=== PATIENT | female | born 1955 | race Caucasian/White ===

== ENCOUNTER 2017-05-13 15:50 | Emergency (ER) | payer OTHER, MEDICAID ==
[~2017-05-13] VITALS: Ht 152.4 cm; Wt 120.0 kg
[~2017-05-13 15:50] MED LIST: ALBU1AER INH; DUONI NEB; GABA100C4 PO; GLUC1000 PO; GLUCTES27 XX; KCL20 PO; LISI-363 PO; MOBI15TA PO; OMPR20CCR PO; PERC5TAB12 PO; PRED50 PO; PRED50TA PO; SYMB80AE INH; TORS20TA PO; Z.0.OXYGEN INH
[2017-05-13 15:59] VITALS: BP 166/75; PULSE 76; RESP 16; TEMP 98.6; O2SAT 96
[2017-05-13] MEDS ORDERED: RESP: ALBUTEROL 2.5 MG/3 ML NEB (SCH) NEB ONE (16:15)
[2017-05-13 16:23] VITALS: O2SAT 96
[2017-05-13] MEDS ORDERED: LISI-515 PO (16:51)
[2017-05-13] MEDS ORDERED: VITA2000 PO (16:51)
[2017-05-13] MEDS ORDERED: SYMB160A INH (16:51)
[2017-05-13] MEDS ORDERED: COQ-30CA2 PO (16:51)
[2017-05-13] MEDS ORDERED: ALPH1CAP2 PO (16:51)
[2017-05-13] MEDS ORDERED: MAGN250T11 PO (16:51)
[2017-05-13] MEDS ORDERED: STOO100T PO (16:51)
[2017-05-13] MEDS ORDERED: CALC500T8 PO (16:51)
[2017-05-13] MEDS ORDERED: ATOR10TA15 PO (16:51)
[2017-05-13] MEDS ORDERED: OXYC1TAB36 PO (16:51)
[2017-05-13] MEDS ORDERED: FENT100D T-DERMAL (16:51)
[2017-05-13] MEDS ORDERED: DIFL50TA PO (16:52)
[2017-05-13] MEDS ORDERED: ALBUAER3 INH (16:52)
[2017-05-13] MEDS ORDERED: IPRASOL INH (16:52)
[2017-05-13] MEDS ORDERED: METF1000 PO (16:52)
--- NOTE | 2017-05-13 17:08 | PD ---
HPI Chief Complaint: Fall Time Seen by Provider: 16:05 Travel History International Travel<30 days: No Contact w/Intl Traveler<30days: No Traveled to known affect area: No History of Present Illness HPI This is a 61-year-old female presented to the ER after mechanical fall at home yesterday. Patient slipped and fell on her left side. She complaining of left hip pain as well as knee pain. Pain is 6 out of 10 comes and goes worse when she moves her extremities. There is no motor or sensory loss, no back pain no loss of consciousness or vomiting or head trauma. PFSH Past Medical History Hx Anticoagulant Therapy: No Arthritis: Yes Asthma: Yes Autoimmune Disease: No Blood Disorders: No Anxiety: No Depression: No Heart Rhythm Problems: No Cancer: No Cardiovascular Problems: Yes (CHF) High Cholesterol: No Chemotherapy: No Chest Pain: No Congestive Heart Failure: Yes COPD: Yes Cerebrovascular Accident: No Diabetes: Yes Patient Takes Glucophage: Yes Diminished Hearing: No Endocrine: No Gastrointestinal Disorders: Yes GERD: Yes Glaucoma: No Genitourinary: No Hepatitis: No Hiatal Hernia: No Hypertension: Yes Immune Disorder: No Implanted Vascular Access Dvce: No Kidney Stones: No Musculoskeletal: Yes Neurologic: No Psychiatric: No Reproductive: No Respiratory: Yes (COPD) Immunizations Current: No Myocardial Infarction: No Radiation Therapy: No Renal Failure: No Sleep Apnea: Yes (O2 QHS) Thyroid Disease: No Ulcer: No Tetanus Vaccination: < 5 Years Influenza Vaccination: No ?: Not Menopausal: Yes Dilation and Curettage (D&C): Yes Past Surgical History Abdominal Surgery: Yes (UMBILLICAL HERNIA REPAIR) AICD: No Appendectomy: No Cardiac Surgery: No Cholecystectomy: No Ear Surgery: No Endocrine Surgery: No Eye Surgery: No Genitourinary Surgery: No Gynecologic Surgery: No Hysterectomy: No Insulin Pump: No Joint Replacement: No Neurologic Surgery: No Oral Surgery: Yes (TONSILECTOMY ) Pacemaker: No Thoracic Surgery: No Tonsillectomy: Yes Other Surgery: Yes (NOSE) Social History Alcohol Use: No Tobacco Use: No Substance Use: No Allergies-Medications (Allergen,Severity, Reaction): Coded Allergies: strawberry (Unverified Allergy, Severe, HIVES, 05/13/17) hives on abdomen levofloxacin (Unverified Allergy, Intermediate, Rash, 05/13/17) DEVELOPED WHELPS AT SITE OF INFUSION , STOPPED AND MD NOTIFIED. ADDED TO ALLERGY LIST AT THIS TIME. naproxen (Unverified Adverse Reaction, Severe, Anaphylaxis, 05/13/17) Uncoded Allergies: artificial sweetners (Adverse Reaction, Severe, gets sores in mouth, ) Reported Meds & Prescriptions Reported Meds & Active Scripts Active Reported Diflucan (Fluconazole) 50 Mg Tab 50 Mg PO DAILY Metformin (Metformin HCl) 1,000 Mg Tab 1,000 Mg PO BIDPC Proair Hfa 8.5 GM Inh (Albuterol Sulfate) 90 Mcg/Act Aer 2 Puff INH Q4-6H PRN 108 mcg/actuation Duoneb (Ipratropium-Albuterol Neb) 0.5-2.5 Mg/3 Ml Neb 1 Nebule INH Q6HR NEB Alpha Lipoic Acid 100 Mg Cap 100 Mg PO DIRECTED Stool Softener (Docusate Sodium) 100 Mg Tab 1 Tab PO HS Calcium Oyster Shell (Calcium Carbonate) 1,250 Mg Tab 1,250 Mg PO BID 1,250 mg calcium carbonate (500 mg elemental calcium) Atorvastatin (Atorvastatin Calcium) 10 Mg Tab 10 Mg PO HS Coq-10 (Coenzyme Q10 (Ubidecarenone)) 30 Mg Cap 1 Cap PO DAILY Fentanyl Patch 72 HR (Fentanyl) 100 Mcg/Hr Patch 100 Mcg T-DERMAL Q72H Remove old patch when new one placed. Oxycodone-Acetaminophen 10-325 mg Tab 1 Tab PO DIRECTED PRN Vitamin D3 (Cholecalciferol) 2,000 Unit Cap 2,000 Units PO DAILY Magnesium Oxide 250 Mg Tab 250 Mg PO DAILY Lisinopril 20 Mg Tab 20 Mg PO BID Symbicort Inh (Budesonide/Formoterol Fumarate) 160-4.5 Mcg/Act Aero 2 Puff INH Q12HR Review of Systems Except as stated in HPI: all other systems reviewed are Neg Physical Exam Narrative GENERAL: Alert oriented 3 no acute distress. SKIN: Focused skin assessment warm/dry. HEAD: Atraumatic. Normocephalic. EYES: Pupils equal and round. No scleral icterus. No injection or drainage. ENT: No nasal bleeding or discharge. Mucous membranes pink and moist. NECK: Trachea midline. No JVD. CARDIOVASCULAR: Regular rate and rhythm. No murmur appreciated. RESPIRATORY: No accessory muscle use. Clear to auscultation. Breath sounds equal bilaterally. GASTROINTESTINAL: Abdomen soft, non-tender, nondistended. Hepatic and splenic margins not palpable. MUSCULOSKELETAL: Mild tenderness of left hip, full range of motion even with tenderness. Mild knee tenderness but no swelling or erythema not warm to touch. No obvious deformities. No clubbing. No cyanosis. No edema. NEUROLOGICAL: Awake and alert. No obvious cranial nerve deficits. Motor grossly within normal limits. Normal speech. PSYCHIATRIC: Appropriate mood and affect; insight and judgment normal. Data Data Last Documented VS Vital Signs Date Time Temp Pulse Resp B/P (MAP) Pulse Ox O2 Delivery O2 Flow Rate FiO2 05/13/17 16:23 96 21 05/13/17 16:20 18 Room Air 05/13/17 15:59 98.6 76 166/75 (105) Orders Orders Albuterol Neb (Albuterol Neb) (05/13/17 16:15) Knee, Complete (4vws) (05/13/17 ) Spine, Lumbar Comp W/Obliq (05/13/17 ) Hip, Uni(Ap&Lat) W Ap Pelvis (05/13/17 ) MDM Medical Decision Making Medical Screen Exam Complete: Yes Emergency Medical Condition: Yes Differential Diagnosis Fracture, dislocation, soft tissue swelling. Narrative Course This is a 61-year-old female presents to the ER complaining of a fall at home yesterday. Fall was mechanical, x-rays are showing no acute disease. Patient is stable to be discharged to follow-up with her primary care physician. Diagnosis Primary Impression: Fall Qualified Codes: W19.XXXA - Unspecified fall, initial encounter Additional Instructions: Return to ER if symptoms change or do not improve. Disposition: 01 DISCHARGE HOME Condition: Stable Nicola Rodríguez MD May 13, 2017 17:08
--- NOTE | 2017-05-13 17:13 | RADRPT ---
EXAM DATE/TIME: 05/13/2017 16:36 [facility] COMPARISON: No previous studies available for comparison. INDICATIONS : Trauma, fall. Anterior knee pain. MEDICAL HISTORY : None. SURGICAL HISTORY : None. ENCOUNTER: Initial ACUITY: 2 days PAIN SCORE: 4/10 LOCATION: Left knee. FINDINGS: There is spurring of tibial spines and narrowing of the medial tumor from compartment prominent mary nal osteophytosis. No acute fracture or dislocation. Small knee joint effusion moderate patellofemora l osteoarthritis. CONCLUSION: Moderate degenerative changes and small effusion. No fracture. Robin Hart MD on May 13, 2017 at 17:11 Board Certified Radiologist. This report was verified electronically.
--- NOTE | 2017-05-13 17:13 | RADRPT ---
EXAM DATE/TIME: 05/13/2017 16:36 [facility] COMPARISON: No previous studies available for comparison. INDICATIONS : Trauma, fall. Left hip pain. MEDICAL HISTORY : None. SURGICAL HISTORY : None. ENCOUNTER: Initial ACUITY: 2 days PAIN SCORE: 4/10 LOCATION: Left hip FINDINGS: Examination of the left hip was performed with AP Pelvis. The primary and secondary trabecular patte rn of the femoral neck is intact. The hip joint is of normal width without significant sclerosis or bony hypertrophy. The acetabulum is grossly intact. CONCLUSION: No acute disease. Robin Hart MD on May 13, 2017 at 17:11 Board Certified Radiologist. This report was verified electronically.
--- NOTE | 2017-05-13 17:14 | RADRPT ---
EXAM DATE/TIME: 05/13/2017 16:36 [facility] COMPARISON: No previous studies available for comparison. INDICATIONS : Trauma, fall. Lower back pain. MEDICAL HISTORY : None. SURGICAL HISTORY : None. ENCOUNTER: Initial ACUITY: 2 days PAIN SCORE: 4/10 LOCATION: Lumbar spine. FINDINGS: There is slight levoscoliosis centered at L3. Moderate facet hypertrophy L4-5 and L5-S1 with grade 1 anterolisthesis of L4 on L5 identified. Moderate disc space narrowing with vacuum disc phenomenon at L3-4 and L4-5. No compression deformity. Mild multilevel osteophytosis. CONCLUSION: Moderate degenerative changes. No fracture. Robin Hart MD on May 13, 2017 at 17:12 Board Certified Radiologist. This report was verified electronically.
[2017-05-13 17:45] VITALS: BP 120/60; PULSE 75; RESP 18; O2SAT 97
== END 2017-05-13 17:50 | disposition home or self-care (01) ==
LOC: PHED 15:50
DX: M25.552 Pain in left hip (principal); W01.0XXA Fall on same level from slipping, tripping and stumbling without subsequent striking against object, initial encounter; M19.90 Unspecified osteoarthritis, unspecified site; J45.909 Unspecified asthma, uncomplicated; I11.0 Hypertensive heart disease with heart failure; I50.9 Heart failure, unspecified; J44.9 Chronic obstructive pulmonary disease, unspecified; E11.9 Type 2 diabetes mellitus without complications; Z79.84 Long term (current) use of oral hypoglycemic drugs
CPT/HCPCS: 72110; 73502; 73564; 94664; 99284; J7613